=== PATIENT | male | born 1945 | race Caucasian/White ===

== ENCOUNTER → 2023-09-22 14:59 | Outpatient (REF) | payer MEDICARE, OTHER, SELFPAY | LOC: PAVMRI 14:59 | PROVIDERS: ATTENDING PHYSICIAN Physician Assistant; FAMILY PHYSICIAN Internal Medicine | DX: M54.12 Radiculopathy, cervical region (principal) | CPT/HCPCS: 72141 ==

== ENCOUNTER → 2023-10-24 06:46 | Outpatient (REF) | payer MEDICARE, OTHER, SELFPAY ==
[2023-10-24 08:36] LABS: % Basophils 0.6 % (0-2); % Eosinophils 3.4 % (0-6); % Immature Granulocytes 0.4 % (0-0.5); % Lymphocytes 28.3 % (20.5-51.1); % Monocytes 8.4 % (1.7-9.3); % Neutrophils 58.9 % (42.2-75.2); Absolute Eosinophils 0.2 10^3/uL (0-0.7); Absolute Lymphocytes 1.4 10^3/uL (1.2-3.4); Absolute Monocytes 0.4 10^3/uL (0.1-0.6); Hematocrit 42.9 % (39.0-52.0); Hemoglobin 14.1 g/dL (13.0-18.0); Mean Corp Hgb Conc. 32.9 g/dL (33.0-37.0); Mean Corpuscular Hgb 29.4 pg (27.0-31.0); Mean Corpuscular Volume 89.4 fL (80.0-94.0); Mean Platelet Volume 10.6 fL (7.4-10.4); Nucleated Red Blood Cells % 0 % (-); Platelet Count 146 10^3/uL (130-400); Red Cell Dist. Width 13.5 % (11.5-14.5)
[2023-10-24 08:43] LABS: ALT (SGPT) 20 U/L (0-50); AST (SGOT) 26 U/L (17-59); Albumin 4.5 g/dl (3.5-5.0); Alkaline Phosphatase 66 U/L (38-126); Blood Urea Nitrogen 28 mg/dl (9-20); Calcium 9.5 mg/dl (8.4-10.2); Carbon Dioxide 29 mmol/L (22-30); Chloride 104 mmol/L (98-107); Glucose 109 mg/dl (70-99); HDL Cholesterol 36 mg/dl; LDL Cholesterol, Calculated 60 mg/dl; Potassium 4.6 mmol/L (3.5-5.1); Sodium 142 mmol/L (135-145); Total Bilirubin 0.7 mg/dl (0.2-1.3); Total Cholesterol 128 mg/dl (50-199); Total Protein 6.5 g/dl (6.3-8.2); Triglyceride 164 mg/dl (10-149); Very Low Density Lipoprotein 32 mg/dl (0-30); eGFR 56.93
[2023-10-24 08:56] LABS: Glycohemoglobin (HgbA1c) 6.1 % (4.0-5.6)
[2023-10-24 09:14] LABS: PSA, Total - Diagnostic 1.75 ng/ml (0.0-4.0); TSH 1.68 uIU/ml (0.47-4.68)
== END ==
LOC: HWLAB 06:46
PROVIDERS: ATTENDING PHYSICIAN Internal Medicine
DX: E78.5 Hyperlipidemia, unspecified (principal); I25.5 Ischemic cardiomyopathy; N40.0 Benign prostatic hyperplasia without lower urinary tract symptoms; R53.83 Other fatigue; R73.03 Prediabetes
CPT/HCPCS: 36415; 80053; 80061; 83036; 84153; 84443; 85025

== ENCOUNTER 2023-10-25 06:29 | Outpatient (RCR) | payer MEDICARE, OTHER, SELFPAY | END 2023-10-25 23:59 | disposition home or self-care (01) | LOC: RPT 06:29 | PROVIDERS: ATTENDING PHYSICIAN Internal Medicine; FAMILY PHYSICIAN Internal Medicine | DX: I89.0 Lymphedema, not elsewhere classified (principal); Z73.6 Limitation of activities due to disability; R26.2 Difficulty in walking, not elsewhere classified; M62.81 Muscle weakness (generalized) | CPT/HCPCS: 97162; 97535; 97760 ==

== ENCOUNTER 2023-12-12 09:04 | Outpatient (RCR) | payer MEDICARE, OTHER, SELFPAY | END 2023-12-12 23:59 | disposition home or self-care (01) | LOC: RPT 09:04 | PROVIDERS: ATTENDING PHYSICIAN Internal Medicine; FAMILY PHYSICIAN Internal Medicine | DX: I89.0 Lymphedema, not elsewhere classified (principal); Z73.6 Limitation of activities due to disability; R26.2 Difficulty in walking, not elsewhere classified; M62.81 Muscle weakness (generalized) | CPT/HCPCS: 97535; 97763 ==

== ENCOUNTER 2024-01-09 11:47 | Outpatient (RCR) | payer MEDICARE, OTHER, SELFPAY | END 2024-01-09 23:59 | disposition home or self-care (01) | LOC: RPT 11:47 | PROVIDERS: ATTENDING PHYSICIAN Internal Medicine; FAMILY PHYSICIAN Internal Medicine | DX: I89.0 Lymphedema, not elsewhere classified (principal); Z73.6 Limitation of activities due to disability; R26.2 Difficulty in walking, not elsewhere classified; M62.81 Muscle weakness (generalized) | CPT/HCPCS: 97535 ==

== ENCOUNTER 2024-02-04 23:13 | Inpatient (IN) | payer MEDICARE, OTHER, SELFPAY ==
[2024-02-04 18:10] VITALS: BP 168/81
[2024-02-04 18:55] VITALS: BMI 31.9
[2024-02-04 19:18] LABS: % Basophils 0.2 % (0-2); % Immature Granulocytes 0.5 % (0-0.5); % Monocytes 6.6 % (1.7-9.3); % Neutrophils 82.7 % (42.2-75.2); Absolute Eosinophils 0.1 10^3/uL (0-0.7); Absolute Immature Granulocytes 0.1 10^3/uL (0-0.05); Absolute Lymphocytes 1.2 10^3/uL (1.2-3.4); Absolute Monocytes 0.9 10^3/uL (0.1-0.6); Absolute Neutrophils 11.1 10^3/uL (1.4-6.5); Hematocrit 45.5 % (39.0-52.0); Hemoglobin 15.9 g/dL (13.0-18.0); Mean Corp Hgb Conc. 34.9 g/dL (33.0-37.0); Mean Corpuscular Hgb 29.7 pg (27.0-31.0); Mean Corpuscular Volume 84.9 fL (80.0-94.0); Nucleated Red Blood Cells % 0 % (-); Platelet Count 196 10^3/uL (130-400); Red Blood Cell Count 5.36 10^6/uL (4.70-6.10); Red Cell Dist. Width 13.5 % (11.5-14.5); White Blood Cell Count 13.4 10^3/uL (4.8-10.8)
[2024-02-04] MEDS: NSS 1000 IV (19:20)
[2024-02-04] MEDS: ATIVAN 1 MG PO (19:20)
[2024-02-04 19:27] VITALS: BP 147/77
[2024-02-04 19:31] LABS: ALT (SGPT) 22 U/L (0-50); AST (SGOT) 34 U/L (17-59); Albumin 5.2 g/dl (3.5-5.0); Alkaline Phosphatase 67 U/L (38-126); Blood Urea Nitrogen 32 mg/dl (9-20); Calcium 10.5 mg/dl (8.4-10.2); Carbon Dioxide 27 mmol/L (22-30); Chloride 103 mmol/L (98-107); Estimated Creatinine Clearance 57 ml/min; Glucose 110 mg/dl (70-99); Lipase 60 U/L (23-300); Potassium 4.6 mmol/L (3.5-5.1); Sodium 144 mmol/L (135-145); Total Protein 7.1 g/dl (6.3-8.2); eGFR 56.58
[2024-02-04 20:00] VITALS: BP 155/65
[2024-02-04 21:14] VITALS: BP 159/78
[2024-02-04 21:19] LABS: Urine Albumin Negative (Neg - Trace); Urine Bilirubin Negative (Negative); Urine Character Clear (Clear); Urine Color Yellow; Urine Glucose Negative (Negative); Urine Ketone Trace (Negative); Urine Leukocyte Negative (Negative); Urine Nitrite Negative (Negative); Urine Occult Blood Negative (Negative); Urine Urobilinogen Negative (Neg - 1+)
[2024-02-04 22:00] VITALS: BP 153/78
--- NOTE | 2024-02-04 22:03 | ED.GENMED ---
History of Present Illness
General
Chief Complaint: Abdominal Pain
Source: patient
Time Seen by Provider: 02/04/24 18:51
History of Present Illness
History of Present Illness:
This is 78-year-old male who presents with worsening abdominal discomfort. States he initially had some looser stools but then since has been constipated. Patient admits that he has had a little bit of nausea. The patient admits that he has had
some bloating which began about a week prior to arrival. Symptoms worsened last few days. No fevers.
Past History
Past History
ED Past Medical History: CAD, GERD, HTN, Hypercholesterolemia, [place] (1998), Psychiatric (Anxiety, panic disorder), Other (Diverticulitis) and Other (Thoracic and lumbar degenerative disc disease)
ED Past Surgical History: Orthopedic (Achilles tendon repair) and Other (Hernia repair)
Social History
Tobacco: Non-smoker
Alcohol: None
Personal:
Living: with family
Employment: Retired
Family History
Family History: Hypertension
Phy Exam
Physical Exam
Physical Exam:
CONSTITUTIONAL Patient alert and oriented to person, place and time. Well-appearing. Vital signs reviewed.
HEAD atraumatic, normocephalic.
EYES eyelids normal to inspection, Extraocular muscles intact, Conjunctiva normal, Sclera normal.
NECK normal range of motion, Trachea midline, no jugular venous distention.
RESPIRATORY CHEST No respiratory distress noted, Chest expansion equal
ABDOMEN moderate distention, hypoactive bowel sounds, moderate mid abdominal tenderness.
BACK normal inspection, no obvious deformities
UPPER EXTREMITY range of motion normal, Motor strength normal, no cyanosis, no edema.
LOWER EXTREMITY range of motion normal, Motor strength normal, no cyanosis
NEURO Speech normal, No focal motor deficits, Oralia coma scale 15, Memory normal, Cranial Nerves intact to screening exam.
SKIN skin warm, dry, and normal in color.
PSYCHIATRIC patient oriented to person place and time, Normal affect.
Course
Orders/Labs/Results
Orders:
Orders
02/04/24 19:12
Complete Blood Count/With Diff Urgent
Comprehensive Metabolic Panel Urgent
Lipase Urgent
02/04/24 19:14
0.9% Sodium Chloride 1000 ml [Nss] 1,000 ml IV BOLUS
Lorazepam [Ativan] 1 mg PO NOW STA
02/04/24 19:15
CT Abd/Pel (IV only)-DH only Urgent
Comment:
Reason For Exam: abd pain, abd distention
02/04/24 19:16
Lactic Acid Urgent
02/04/24 21:14
Urinalysis Reflex To Culture Urgent
Date Specimen was Collected: 02/04/24
Time Specimen was Collected: 19:00
02/04/24 22:08
Morphine Sulfate 4 mg IV NOW STA
Ondansetron Injectable [Zofran] 4 mg IV NOW STA
02/04/24 22:56
Albuterol [ProAIR HFA INHALER] 2 puff INH R Q4HPRN PRN
Lorazepam [Ativan] 1 mg PO BID PRN
02/04/24 23:00
Admit/Transfer Patient As Directed
Co-Sign Provider:
Level of Care: Inpatient admission
Assign to:: Medical/Surgical
Physician / Group: Hospitalist
Diagnosis: Small bowel obstruction
Reason for Hospitalization: small bowel obstruction
Expected length of stay greater than two midnights?: Yes
ELOS- Estimated Length of Stay in days: 2
I certify the patient meets the requirements for IP care: Yes
Flush (0.9% Sodium Chloride) [Flush (Nss)] See Dose Instructions IV PER PROTOCOL
PRN Pain Medication Management As Directed
May give lesser potent ordered pain med per pt: Yes
preference::
Protocol:: Medication orders for pain may be administered in a
manner that supports deferring to patient preference
when the pt is:
- Requesting an ordered lesser potent pain medication.
Least to most potent pain medications are defined
as: acetaminophen < NSAID < tramadol < opioids
(morphine, oxycodone, hydromorphone).
- Requesting a lesser dose of the same medication IF
ORDERED.
- Requesting a less intrusive route of administration
if both routes are prescribed by the provider (PO <
IV).
02/04/24 23:01
Code Status As Directed
Resuscitation Status: Full Code
02/05/24 00:03
Acetaminophen [Tylenol] 650 mg PO Q4HPRN PRN
Bisacodyl [Dulcolax] 10 mg RECTAL [id number] PRN
Dextrose 5%/0.45%Sodchl 1000ML [D5/0.45%NaCl] 1,000 ml IV 40 mls/hr
Docusate W/Senna [Senokot-S] 1 tablet PO BIDPRN PRN
Morphine Sulfate 2 mg IV Q4HPRN PRN
Ondansetron Injectable [Zofran] 4 mg IV Q6HPRN PRN
Polyethylene Glycol Powder [Miralax] 17 grams PO DAILYPRN PRN
02/05/24 00:03
Consult Notification Routine
Specialty to Notify: Surgical
Date consulting provider notified: 02/05/24
Time consulting provider notified: 07:38
Notified:: Provider
Comment: Micheal PADILLA
SURGICAL CONSULT Routine
Consulting Provider: Sujit Paulino
Was physician already notified: No
Reason for consult: small bowel obstruction
Activity As Directed
Activity Level: With Assistance
Vital Signs As Directed
Frequency: Post-operative guidelines
DX Deep Vein Thrombosis Video Routine
02/05/24 06:16
Basic Metabolic Panel IN AM
Complete Blood Count/No Diff IN AM
02/05/24 08:00
Metoprolol Xl [Toprol Xl] 25 mg PO DAILY
Pantoprazole [Protonix IV] 40 mg IV DAILY
02/05/24 Dinner
NPO
Allow oral meds: Yes
Allow clear liquids: Sips of Clears
NPO with Ice Chips: Yes
02/05/24 18:00
Aspirin Low Dose EC [Aspir Low (Enteric Coated)] 81 mg PO QPM
Atorvastatin [Lipitor] 40 mg PO QPM
Enoxaparin Sodium [Lovenox] 40 mg SC QPM
Abnormal Lab Results
02/04/24 02/04/24
19:12 21:14
WBC 13.4 H 10^3/uL
(4.8-10.8)
Abs Immat Gran (auto) 0.1 H 10^3/uL
(0-0.05)
Absolute Neuts (auto) 11.1 H 10^3/uL
(1.4-6.5)
Absolute Monos (auto) 0.9 H 10^3/uL
(0.1-0.6)
Neutrophils % 82.7 H %
(42.2-75.2)
Lymphocytes % 9.0 L %
(20.5-51.1)
BUN 32 H mg/dl
(9-20)
Glucose 110 H mg/dl
(70-99)
Calcium 10.5 H mg/dl
(8.4-10.2)
Albumin 5.2 H g/dl
(3.5-5.0)
Urine Ketones Trace A
(Negative)
02/04/24 19:12
02/04/24 19:12
Vital Signs
Initial and Last Documented VS:
Initial Vital Signs
Temp Pulse Resp BP Pulse Ox
98.2 F 92 18 168/81 96
02/04/24 18:10 02/04/24 18:10 02/04/24 18:10 02/04/24 18:10 02/04/24 18:10
Last Documented Vital Signs
Temp Pulse Resp BP Pulse Ox
97.5 F 63 17 130/71 99
02/09/24 13:21 02/09/24 13:21 02/09/24 13:21 02/09/24 13:21 02/09/24 13:21
MDM/Problems Addressed
MDM/Problems Addressed:
Small bowel obstruction
*Radiology
Radiology exam reviewed: radiology read reviewed
*Pulse Oximetry
Patient hypoxic: no
*Critical Care Note
Total Time (30-74mins, 75-104mins- exclusive of procedures): Not Applicable
Data Reviewed
Source: patient
Further Testing Considered But Not Given:
Considered NG tube but no evy vomiting
Patient Management
Discussion with other providers: Hospitalist
Escalation/DeEscalation of care consider admission/obs:
SBO by CT. Admit. Hold off on NG tube for now
ED Attending Note
-
Portions of this chart may have been created with voice recognition software.� Occasional wrong word or��sound alike� substitutions may have occurred due to the inherent limitations of voice recognition software.
Discharge Plan
Departure
Patient Disposition: Admit
Date of Disposition: 02/04/24
Time of Disposition: 22:03
Admit to: Med/Surg
Presentation/result/management discussed w/ accepting MD/DO: Hospitalist
Discharge Problem:
SBO (small bowel obstruction)
Interventions
Interventions:
*Risk Screen - Suicide Last Done: 02/04/24 18:10
*General Assessment Last Done: 02/04/24 18:55
*Neglect/Abuse Screening Last Done: 02/04/24 18:10
ED- Fall Risk Assessment Last Done: 02/04/24 19:30
*ED COVID-19 Vaccine History Last Done: 02/04/24 18:10
*Nursing Disposition Last Done: 02/04/24 23:56
[facility]-Acrlkxmxb[facility] Assessment Last Done: 02/04/24 19:30
Discharge Date and Time
Discharge Date/Time: 02/04/24 23:57
[2024-02-04] MEDS: MORPHINE SULFATE 4 MG IV (22:28)
[2024-02-04] MEDS: ZOFRAN 4 MG IV (22:28)
--- NOTE | 2024-02-04 22:46 | HPS.HSE ---
Family Physician
-
Family Physician: Evin Hassan
Chief Complaint
-
Abdominal pain
History of Present Illness
This is a 78-year-old was past medical history of COPD CAD with remote stenting 24 years ago, hyperlipidemia, COPD not on home O2, presenting to the emergency department with acute worsening of abdominal pain that started about 1 week ago.
Patient reports that about 1-1/2 weeks of intermittent abdominal pain associated with intermittent constipation without diarrhea. He denies any nausea or vomiting. He is taking antacids and anti-gas medications without any significant improvement.
Patient denies having any fevers or chills. He denies any rash. He has no recent surgical or interventional procedures. Patient reports a remote history of a hernia repair. Denies any history of intra-abdominal surgery but does not recall
denies ever had an appendectomy. He denies any urinary symptoms including dysuria urinary incontinence or frequency. Patient has been able to tolerate p.o. with his last meal earlier today. He denies feeling lightheaded or dizzy. Patient passing
as. Last BM today.
In the ED he was afebrile blood pressure was 168/81 with a pulse rate of 92 and oxygen saturation of 96% on room air. He had a leukocytosis to 13,000 with a hemoglobin of 16 and a normal platelet count. Chemistries within normal limits. Normal
lipase and LFTs. Calcium was slightly elevated at 10.5 but corrects to normal given albumin of 5. UA was unremarkable. CT of the abdomen pelvis without oral contrast shows mid distal dilation of the small bowel. Diverticulosis without
diverticulitis.
Medical History
Past Medical History
Past Medical History: Reports CAD, HTN and Hypercholesterolemia
Additional Past Medical History:
Diverticulitis
Past Surgical History: Reports Other (Hernia repair)
Social History
Tobacco: Smoker
Alcohol: None
Drug: None
Personal:
Living: With Family
Employment: Retired
Family History
Family History: Not pertinent
Allergies / Home Medications
Allergies reflects when Allergies were last updated in [employer].
Home Medications with original date entered in [employer]
Allergy/Medication List:
Allergies
Allergy/AdvReac Type Severity Reaction Status Date / Time
penicillin G Allergy skin red Verified 02/04/24 18:16
and
swelling,
Itching
Penicillins Allergy skin red Verified 02/04/24 18:16
and
swelling,
Itching
Home Medications
nitroglycerin 0.3 mg sublingual tablet (NitroQuick) 0.3 mg sublingual PRN PRN chest pain 06/07/09
Fibercon: 1 cap PO QPM Constipation 12/01/20
aspirin 81 mg tablet,delayed release 81 mg PO QPM Blood Clot Prevention/Tx 12/01/20
atorvastatin 20 mg tablet 40 mg PO QPM High Cholesterol 12/01/20
coenzyme [id number] E 100 mg-100 unit capsule 1 cap PO DAILY Supplement 12/01/20
cyclobenzaprine 10 mg tablet 10 mg PO PRN PRN spasms 12/01/20
famotidine 20 mg tablet (Acid Controller) 20 mg PO PRN PRN Heartburn 12/01/20
fenofibrate nanocrystallized 145 mg tablet 145 mg PO QPM High Cholesterol 12/01/20
fexofenadine 180 mg tablet (Soila) 180 mg PO PRN PRN Allergy Symptoms 12/01/20
ibuprofen 200 mg tablet (Advil) 400 mg PO PRN PRN pain 12/01/20
metoprolol succinate 25 mg tablet,extended release 24 hr (Toprol XL) 25 mg PO DAILY Blood Pressure 12/01/20
vit C 250 mg-vit E 90 mg-zinc 40 mg-copper 1 [id number] capsule (PreserVision AREDS-2) 1 ea PO BID Supplement 12/04/20
lorazepam 1 mg tablet 1 mg PO BID PRN anxiety #8 tabs 01/29/23
albuterol sulfate 2 inh inhalation Q4H PRN sob 05/19/23
Review of Systems
-
History Source: Patient
Constitutional: Reports No Symptoms
EENT: Reports No Symptoms
Respiratory: Reports No Symptoms
Cardiac: Reports No Symptoms
Abdomen/GI: Reports Abdominal Pain and Nausea
: Reports No Symptoms
Musculoskeletal: Reports No Symptoms
Skin: Reports No Symptoms
Neurological: Reports No Symptoms
Endocrine: Reports No Symptoms
Hematologic/Lymphatic: Reports No Symptoms
Psych: Reports No Symptoms
Physical Exam
Vital Signs
Vital Signs
Temp Pulse Resp BP Pulse Ox
98.2 F 79 18 153/78 98
02/04/24 18:10 02/04/24 22:30 02/04/24 22:31 02/04/24 22:00 02/04/24 22:30
Physical Exam
General: Well Developed, Well Nourished, No Apparent Distress and Comfortable
HEENT: NormoCephalic, Anicteric, Moist mucous membranes and Atraumatic
Respiratory: Clear
Cardiac: S1/S2 and Regular Rhythm
Breast: Deferred by me
GI: Non Tender, Distended and Other (Moderately decreased BS)
Rectal: Deferred by Provider
Genito-urinary: Deferred by me
Musculoskeletal: No Clubbing, No Cyanosis, Edema, Left Lower Extremity (trace) and Edema, Right Lower Extremity (trace)
Skin: Warm
Neuro: AO x 3
Hematologic/Lymphatic: No Lymphadenopathy
Psych: Calm
Laboratory Results
-
02/04/24 19:12
02/04/24 19:12
Laboratory Results
Lactic Acid 1.0 mmol/L (0.7-2.0) 02/04/24 19:16
Total Bilirubin 1.0 mg/dl (0.2-1.3) 02/04/24 19:12
AST 34 U/L (17-59) 02/04/24 19:12
ALT 22 U/L (0-50) 02/04/24 19:12
Alkaline Phosphatase 67 U/L (38-126) 02/04/24 19:12
Lipase 60 U/L (23-300) 02/04/24 19:12
Data Reviewed
-
CT Scan: Report Reviewed by me
Lab Data: Labs Reviewed by me
Old Records: Reviewed
Impression/Plan
-
IMPRESSION:
78 y.o coming in with abdominal pain and found to have a small bowel obstruction.
PLAN:
1. SBO - Abdominal pain worsening today. NO vomiting. Passing flatus. SBO on CT a/p w/o oral contrast. Looks non-toxic and belly exam is benign. No obvious reason for the SBO as patient denies prior intraabdominal surgery. No known
inflammatory bowel disorders. No new medications and not on opioids.
- admit to med/surg
- no indication for NG tube yet
- NPO for now except meds/sips and ice chips
- low maintenance fluids as euvolemic with trace edema - d5 1/2 NS at 40 ml/hr
- pain control and antiemetics
- surgery consult.
2. CAD - PCI in 1999. No recent symptoms. Well appearing and stable
- continue aspirin, statin and metoprolol
3. COPD - No acute symptoms
- prn albuterol
DVT PPX - lovenox sq
Code Status - Full Code
[2024-02-04 23:00] VITALS: BP 135/74
[2024-02-05] VITALS (7 sets, daily range): BP systolic 127–169; BP diastolic 65–90; BMI 31.9; BMI 32.1
[2024-02-05] MEDS: D5/0.45%NACL 1000 IV (00:31)
[2024-02-05] MEDS: NICODERM TRANSDERMAL 21 MG TRANSDERM ×2 (00:34→07:53)
[2024-02-05 06:55] LABS: Blood Urea Nitrogen 29 mg/dl (9-20); Carbon Dioxide 24 mmol/L (22-30); Chloride 108 mmol/L (98-107); Estimated Creatinine Clearance 62 ml/min; Glucose 98 mg/dl (70-99); Potassium 4.2 mmol/L (3.5-5.1); Sodium 142 mmol/L (135-145); eGFR > 60.00
[2024-02-05 07:32] LABS: Hematocrit 39.2 % (39.0-52.0); Hemoglobin 13.5 g/dL (13.0-18.0); Mean Corp Hgb Conc. 34.4 g/dL (33.0-37.0); Mean Corpuscular Hgb 29.2 pg (27.0-31.0); Mean Corpuscular Volume 84.8 fL (80.0-94.0); Platelet Count 156 10^3/uL (130-400); Red Blood Cell Count 4.62 10^6/uL (4.70-6.10); Red Cell Dist. Width 13.7 % (11.5-14.5); White Blood Cell Count 7.4 10^3/uL (4.8-10.8)
[2024-02-05] MEDS: TOPROL XL 25 MG PO (07:53)
[2024-02-05] MEDS: NSS (PRESERVATIVE FREE) 10 ML IV (07:54)
[2024-02-05] MEDS: PROTONIX IV 40 MG IV (07:55)
--- NOTE | 2024-02-05 09:31 | CON.GS ---
Consultation
-
Date/Time Consultation Requested: 02/05/24 0003
Requesting Provider: Skip
Reason for Consultation: small bowel obstruction
Medical History
-
Chief Complaint: Abdominal bloating
History of Present Illness:
This is a 78 yo male with a h/o CAD with remote stenting, umbilical hernia repair, right indirect hernia, left inguinal hernia repair and diverticulitis x2 episodes who presented through the ED with increasing abdominal bloating which began about 7
days ago but significantly worsened about 3 days ago. He noted abdominal pain as well yesterday which caused him to present through the ED for evaluation. He notes that he hasn't really been passing flatus but isn't really sure. He notes his bowel
movements this week have been small and he feels like he is not emptying all the way when he goes. On exam, his abdomen is significantly distended with diastasis noted. There is no tenderness on exam and he currently denies pain. He has been
afebrile and continues without nausea.
Past Medical History
Past Medical History: CAD (PCI in 1999), COPD, Diverticulitis (x2 episodes with last colonoscopy in 2016), GERD, HTN, Hypercholesterolemia, NIDDM, Psychiatric (HERLINDA) and Other (ABBY)
Past Surgical History: Cardiac (PTCA with stent 1999), Hernia Repair (umbilical hernia repair, right indirect hernia repair [address] Cook, Left inguinal hernia repair 2006) and Orthopedic (Left shoulder, achilles )
Social History
Tobacco: Smoker
Alcohol: Occasional
Drug: None
Living: With Family
Family History
Family History: Reviewed & Not Pertinent
Allergies / Home Medications
Allergy/AdvReac Type Severity Reaction Status Date / Time
penicillin G Allergy skin red Verified 02/04/24 18:16
and
swelling,
Itching
Penicillins Allergy skin red Verified 02/04/24 18:16
and
swelling,
Itching
�Medication �Instructions �Recorded �Confirmed �Type
nitroglycerin 0.3 mg sublingual 0.3 mg sublingual PRN PRN chest 06/07/09 05/19/23 History
tablet (NitroQuick) pain
Fibercon: 1 cap PO QPM Constipation 12/01/20 05/19/23 History
aspirin 81 mg tablet,delayed 81 mg PO QPM Blood Clot 12/01/20 05/19/23 History
release Prevention/Tx
atorvastatin 20 mg tablet 40 mg PO QPM High Cholesterol 12/01/20 05/19/23 History
coenzyme N99-iovewat E 100 mg-100 1 cap PO DAILY Supplement 12/01/20 05/19/23 History
unit capsule
cyclobenzaprine 10 mg tablet 10 mg PO PRN PRN spasms 12/01/20 05/19/23 History
famotidine 20 mg tablet (Acid 20 mg PO PRN PRN Heartburn 12/01/20 05/19/23 History
Controller)
fenofibrate nanocrystallized 145 145 mg PO QPM High Cholesterol 12/01/20 05/19/23 History
mg tablet
fexofenadine 180 mg tablet 180 mg PO PRN PRN Allergy Symptoms 12/01/20 05/19/23 History
(Soila)
ibuprofen 200 mg tablet (Advil) 400 mg PO PRN PRN pain 12/01/20 05/19/23 History
metoprolol succinate 25 mg 25 mg PO DAILY Blood Pressure 12/01/20 05/19/23 History
tablet,extended release 24 hr
(Toprol XL)
vit C 250 mg-vit E 90 mg-zinc 40 1 ea PO BID Supplement 12/04/20 05/19/23 History
mg-copper 1 [id number]
capsule (PreserVision AREDS-2)
lorazepam 1 mg tablet 1 mg PO BID PRN anxiety #8 tabs 01/29/23 05/19/23 Rx
albuterol sulfate 2 inh inhalation Q4H PRN sob 05/19/23 05/19/23 History
Review of Systems
-
History Source: Patient
All other systems: Negative unless noted
A 10 point review of systems was completed, and was negative except as per HPI.
Physical Exam
Vital Signs
Temp Pulse Resp BP Pulse Ox
98.3 F 78 20 127/67 95
02/05/24 07:47 02/05/24 07:53 02/05/24 07:47 02/05/24 07:53 02/05/24 07:47
02/04/24 02/05/24 02/06/24
06:59 06:59 06:59
Actual Weight 101.469 kg
Body Mass Index (BMI) 32.1
Lab Results
02/05/24 06:16
02/05/24 06:16
WBC 7.4 10^3/uL (4.8-10.8) 02/05/24 06:16
Hgb 13.5 g/dL (13.0-18.0) 02/05/24 06:16
Hct 39.2 % (39.0-52.0) 02/05/24 06:16
Plt Count 156 10^3/uL (130-400) D 02/05/24 06:16
Abs Immat Gran (auto) 0.1 10^3/uL (0-0.05) H 02/04/24 19:12
Neutrophils % 82.7 % (42.2-75.2) H 02/04/24 19:12
Physical Exam
General: Well Developed and Well Nourished
HEENT: Moist Mucous Membranes
Respiratory: Non Labored Respirations
GI: Soft, Non Tender, Distended and Other (Diastasis recti)
Skin: Warm
Neuro: Awake, Alert and AO x 3
Psych: Calm
Data Reviewed
-
CT Scan: Image Personally Visualized and interpreted, Report Reviewed by me, Discussed with Physician and Discussed with Patient
Labs: Labs Reviewed by me, Discussed with Physician and Discussed with Patient
Old Records: Reviewed
Assessment / Plan
-
This is a 78 yo male with a h/o CAD with remote stenting, umbilical hernia repair, right indirect hernia, left inguinal hernia repair and diverticulitis x2 episodes who presented through the ED with increasing abdominal bloating which began about 7
days ago but significantly worsened about 3 days ago. He is currently without pain or nausea but abdomen is quite distended. He is afebrile. Initial leukocytosis noted which resolved. CT imaging without oral contrast with likely SBO with transition
point on the right side. Unclear etiology.
--Continue NPO
--Will plan UGI with SBFT for further evaluation
--Analgesics/antiemetics if needed
--Medical management as per primary team
--- NOTE | 2024-02-05 09:55 | W.PN.HOSP.TC ---
Today's Communication/Plan
-
mgmt asd per genSx
Assessment / Plan
Assessment / Plan
78yo M with PMHX of COPD, CAD, HLD, diverticulitis came with 1 day of worsening abdominal pain and nausea, found distal SBO, had small BM overnight after admission and was passing gas
A/P:
#SBO
zofran
advnace diet as tolerated as per GenSx
GenSx eval
#Mild leukocytosis
no fever
most likely 2/2 acute disease
follow CBC, fever curve off Abx
#CAD, stable
#HLD
#COPD not in exacerbation
cont home meds
DVT ppx lovenox
full code
I have spent at least 37min reviewing chart, test results, communication with consultants and direct patient care
Anticipated Discharge: 24 - 48 hours
Subjective/Interval History
-
Date of Service: February 05, 2024
Objective Data
-
Labs:
Laboratory Results
02/05/24
06:16
WBC 7.4
Hgb 13.5
Hct 39.2
Plt Count 156 D
Sodium 142
Potassium 4.2
Chloride 108 H
Carbon Dioxide 24
BUN 29 H
Creatinine 1.2
Glucose 98
Calcium 9.0 D
Vital Signs:
Vital Signs
Temp Pulse Resp BP Pulse Ox
98.3 F 78 20 127/67 95
02/05/24 07:47 02/05/24 07:53 02/05/24 07:47 02/05/24 07:53 02/05/24 07:47
I&O
02/04/24 02/05/24 02/06/24
06:59 06:59 06:59
Intake Total 0 / 0
Balance 0 / 0
Review of Systems
-
History Source: Patient
All other systems: Reviewed and negative
Physical Exam
-
General: Well Developed, Well Nourished and No Apparent Distress
HEENT: Normocephalic
Respiratory: Clear to Auscultation
Cardiac: Regular Rhythm
GI: Soft and Tender (R side)
Musculoskeletal: No Clubbing, No Cyanosis and No Edema
Neuro: Awake, Alert, Oriented and AO x 3
Psych: Calm
--- NOTE | 2024-02-05 15:41 | CM ---
patient independent prior to admission. HE lives with in ranch home.
HE does not use any assistive devices. NO histtory of VNA or SNF.
admitted from home with SBO.
PCP: Evin Hassan
Pharmacy: [facility]
Plan:home no needs.
[2024-02-05] MEDS: LOVENOX 40 MG SC (17:01)
[2024-02-05] MEDS: ASPIR LOW (ENTERIC COATED) 81 MG PO (17:01)
[2024-02-05] MEDS: LIPITOR 40 MG PO (17:01)
[2024-02-05] MEDS: ADVAIR HFA 115/21 MCG INHALER 2 PUFF INH (20:00)
[2024-02-06] MEDS: D5/0.45%NACL 1000 IV (05:56)
[2024-02-06 06:00] VITALS: BMI 31.3
[2024-02-06 06:50] LABS: ALT (SGPT) 18 U/L (0-50); AST (SGOT) 26 U/L (17-59); Albumin 4.2 g/dl (3.5-5.0); Alkaline Phosphatase 48 U/L (38-126); Blood Urea Nitrogen 22 mg/dl (9-20); Calcium 9.1 mg/dl (8.4-10.2); Carbon Dioxide 26 mmol/L (22-30); Chloride 106 mmol/L (98-107); Estimated Creatinine Clearance 61 ml/min; Glucose 88 mg/dl (70-99); Magnesium 2.1 mg/dl (1.6-2.3); Potassium 3.8 mmol/L (3.5-5.1); Sodium 142 mmol/L (135-145); Total Bilirubin 0.8 mg/dl (0.2-1.3); Total Protein 5.9 g/dl (6.3-8.2); eGFR > 60.00
[2024-02-06 06:55] LABS: % Basophils 0.5 % (0-2); % Eosinophils 2.4 % (0-6); % Immature Granulocytes 0.4 % (0-0.5); % Lymphocytes 27.9 % (20.5-51.1); % Neutrophils 60.8 % (42.2-75.2); Absolute Eosinophils 0.1 10^3/uL (0-0.7); Absolute Lymphocytes 1.5 10^3/uL (1.2-3.4); Absolute Monocytes 0.4 10^3/uL (0.1-0.6); Absolute Neutrophils 3.4 10^3/uL (1.4-6.5); Hematocrit 38.6 % (39.0-52.0); Hemoglobin 13.2 g/dL (13.0-18.0); Mean Corp Hgb Conc. 34.2 g/dL (33.0-37.0); Mean Corpuscular Hgb 30.3 pg (27.0-31.0); Mean Corpuscular Volume 88.5 fL (80.0-94.0); Mean Platelet Volume 10.7 fL (7.4-10.4); Nucleated Red Blood Cells % 0 % (-); Platelet Count 139 10^3/uL (130-400); Red Blood Cell Count 4.36 10^6/uL (4.70-6.10); Red Cell Dist. Width 13.3 % (11.5-14.5); White Blood Cell Count 5.5 10^3/uL (4.8-10.8)
[2024-02-06] MEDS: ADVAIR HFA 115/21 MCG INHALER 2 PUFF INH ×2 (07:23→19:12)
[2024-02-06 07:30] VITALS: BP 149/81
[2024-02-06] MEDS: NSS (PRESERVATIVE FREE) 10 ML IV (08:07)
[2024-02-06] MEDS: PROTONIX IV 40 MG IV (08:07)
[2024-02-06] MEDS: NICODERM TRANSDERMAL 21 MG TRANSDERM (08:07)
[2024-02-06] MEDS: TOPROL XL 25 MG PO (08:16)
[2024-02-06] MEDS: ZOLOFT 200 MG PO (08:16)
--- NOTE | 2024-02-06 10:37 | W.PN.HOSP.TC ---
Today's Communication/Plan
-
pending further genSx eval
Assessment / Plan
Assessment / Plan
78yo M with PMHX of COPD, CAD, HLD, diverticulitis came with 1 day of worsening abdominal pain and nausea, found distal SBO, had small BM overnight after admission and was passing gas, XR showed resolution of obstruction. GenSx evaluated and
upgraded the diet. No clear reason for SBO
A/P:
#SBO
zofran
advnace diet as tolerated as per GenSx
GenSx eval
#Mild leukocytosis - resolved
no fever
most likely 2/2 acute disease
follow CBC, fever curve off Abx
#CAD, stable
#HLD
#COPD not in exacerbation
cont home meds
DVT ppx lovenox
full code
I have spent at least 37min reviewing chart, test results, communication with consultants and direct patient care
Anticipated Discharge: 24 - 48 hours
Subjective/Interval History
-
Date of Service: February 06, 2024
Objective Data
-
Labs:
Laboratory Results
02/06/24
06:02
WBC 5.5
Hgb 13.2
Hct 38.6 L
Plt Count 139
Sodium 142
Potassium 3.8
Chloride 106
Carbon Dioxide 26
BUN 22 H
Creatinine 1.2
Glucose 88
Calcium 9.1
Total Bilirubin 0.8
AST 26
ALT 18
Alkaline Phosphatase 48
Vital Signs:
Vital Signs
Temp Pulse Resp BP Pulse Ox
97.9 F 69 18 149/81 98
02/06/24 07:30 02/06/24 07:30 02/06/24 07:30 02/06/24 07:30 02/06/24 07:30
I&O
02/05/24 02/06/24 02/07/24
06:59 06:59 06:59
Intake Total 0 / 0
Balance 0 / 0
Review of Systems
-
History Source: Patient
All other systems: Reviewed and negative
Physical Exam
-
General: No Apparent Distress
HEENT: Normocephalic
Cardiac: Regular Rhythm
GI: Soft, Nontender and Nondistended
Musculoskeletal: No Clubbing, No Cyanosis and No Edema
Neuro: Awake, Alert, Oriented and AO x 3
Psych: Calm
--- NOTE | 2024-02-06 10:46 | W.PN.GS2 ---
Addendum entered and electronically signed by Sujit Paulino MD 02/06/24 11:07:
Patient seen and examined. Agree with assessment plan as documented below.
Blood some mild fullness and bloating. Denies worsening pain. No nausea or vomiting. Passing flatus and loose, watery, nonbloody stools. Ambulating. Afebrile.
Gen: NAD
Abd: soft, mild tenderness, distended, tympanitic, non-peritoneal
The patient is a 78 yo M p/w partial SBO
Signs of clinical radiographic improvement. Now completely resolved with some mild residual bloating and abdominal distention. Plan for abdominal x-ray today to help gauge dietary advancement. At most would advance to a full liquid diet today.
Encouraged ambulation.
-- Clears
-- X-ray abdomen
-- OOB/ambulate
-- Correct lytes, minimize narcotics
Original Note:
Today's Communication / Plan
-
Patient to get Abdominal X-Ray and stay on clears for now. Will update diet depending on X-ray findings.
Assessment / Plan
-
Asssessment:
Patient is a 78 yo male with a history of umbilical hernia repair, right indirect and left inguinal hernia repair, and two diverticulitis episodes who presented to the ED with abdominal bloating which started around 7 days ago but significantly
worsened about 4 days ago. Patient's small bowel follow through study showed no small bowel obstruction and he has been tolerating a clear liquid diet. His abdomen is currently still distended but he has been passing flatus and stool.
Plan:
AFVSS
--Continuing with Clear Liquid diet for now, will check Abdominal X-Ray today and will upgrade diet as tolerated
--Leukocytosis has resolved- WBC (5.5 today)
--Anti-emetic/pain medicine as needed
--Medical Management as per primary team
--No plans for surgery as of now
DVT Prophylaxis: Lovenox
Subjective Data
-
Date of Service: February 06, 2024
Patient states that he is feeling well and that he has been tolerating clear liquids well. He reports no nausea, vomiting or any abdominal pain. He says he has not had a bowel movement since yesterday but has been passing flatus. He does complain of
feeling a bit bloated.
Objective Data
-
Intake and Output
02/05/24 02/06/24 02/07/24
06:59 06:59 06:59
Intake Total 0 / 0
Balance 0 / 0
Intake:
Oral fluids 0 / 0
Other:
Number of approximated MODERATE 2
amounts of urine
Vital Signs
Temp Pulse Resp BP Pulse Ox
97.9 F 69 18 149/81 98
02/06/24 07:30 02/06/24 07:30 02/06/24 07:30 02/06/24 07:30 02/06/24 07:30
Lab Results
02/06/24 06:02
02/06/24 06:02
Calcium 9.1 mg/dl (8.4-10.2) 02/06/24 06:02
Magnesium 2.1 mg/dl (1.6-2.3) 02/06/24 06:02
Total Bilirubin 0.8 mg/dl (0.2-1.3) 02/06/24 06:02
AST 26 U/L (17-59) 02/06/24 06:02
ALT 18 U/L (0-50) 02/06/24 06:02
Alkaline Phosphatase 48 U/L (38-126) 02/06/24 06:02
Total Protein 5.9 g/dl (6.3-8.2) L 02/06/24 06:02
Albumin 4.2 g/dl (3.5-5.0) 02/06/24 06:02
Physical Exam
-
General: Well Developed and Well Nourished
Abd: Soft, Non Tender, Distended (tympanic upon percussion), Diastasis recti
[2024-02-06 15:30] VITALS: BP 135/76
[2024-02-06] MEDS: ASPIR LOW (ENTERIC COATED) 81 MG PO (17:20)
[2024-02-06] MEDS: LIPITOR 40 MG PO (17:20)
[2024-02-06] MEDS: LOVENOX 40 MG SC (17:20)
[2024-02-06] MEDS: TYLENOL 650 MG PO (19:54)
[2024-02-06 23:07] VITALS: BP 127/76
[2024-02-07 05:02] VITALS: BMI 31.1
--- NOTE | 2024-02-07 05:04 | DOWNTIME ---
There was a [employer] Client Personnel Representative Downtime on 02/07/2024 from 0100 to 02/07/2024 at 0300. Downtime documentation of patient's care, including medication administrations, has been reconciled in the electronic record per guidelines. Refer to the
patient's paper chart under the miscellaneous tab to see printed paper medication records and downtime forms.
[2024-02-07 07:15] VITALS: BP 162/72
[2024-02-07] MEDS: ADVAIR HFA 115/21 MCG INHALER 2 PUFF INH ×2 (08:00→19:22)
[2024-02-07] MEDS: NSS (PRESERVATIVE FREE) 10 ML IV (09:05)
[2024-02-07] MEDS: TOPROL XL 25 MG PO (09:05)
[2024-02-07] MEDS: PROTONIX IV 40 MG IV (09:05)
[2024-02-07] MEDS: ZOLOFT 200 MG PO (09:05)
[2024-02-07] MEDS: ZOFRAN 4 MG IV (09:06)
[2024-02-07] MEDS: NICODERM TRANSDERMAL 21 MG TRANSDERM (09:06)
--- NOTE | 2024-02-07 09:16 | W.PN.GS2 ---
Today's Communication / Plan
-
Cont CLD
Assessment / Plan
-
Asssessment:
Patient is a 78 yo male with a history of umbilical hernia repair, right indirect and left inguinal hernia repair, and two diverticulitis episodes who presented to the ED with abdominal bloating which started around 7 days ago but significantly
worsened about 4 days ago. Patient's small bowel follow through study showed no small bowel obstruction and he has been tolerating a clear liquid diet. His abdomen is currently still mildly distended but he has been passing flatus and stool.
Plan:
AFVSS
--Continuing with Clear Liquid diet for now, will adv when nausea subsides
--Leukocytosis has resolved
--Anti-emetic/pain medicine as needed, still requiring prn zofran as of this am
--Medical Management as per primary team
--No plans for surgery as of now
DVT Prophylaxis: Lovenox
Subjective Data
-
Date of Service: February 07, 2024
AFVSS, passing flatus and BMs, denies abd pain, remains nauseated with PO intake
Objective Data
-
Intake and Output
02/06/24 02/07/24 02/08/24
06:59 06:59 06:59
Intake Total 0 / 0 920 / 920
Balance 0 / 0 920 / 920
Intake:
Oral fluids 0 / 0 920 / 920
IV fluids (Total) 0 / 0
IV piggybacks 0 / 0
Other:
Number of approximated MODERATE 2 2
amounts of urine
Vital Signs
Temp Pulse Resp BP Pulse Ox
97.7 F 70 16 162/72 99
02/07/24 07:15 02/07/24 07:15 02/07/24 07:15 02/07/24 07:15 02/07/24 07:15
Lab Results
02/06/24 06:02
02/06/24 06:02
Calcium 9.1 mg/dl (8.4-10.2) 02/06/24 06:02
Magnesium 2.1 mg/dl (1.6-2.3) 02/06/24 06:02
Total Bilirubin 0.8 mg/dl (0.2-1.3) 02/06/24 06:02
AST 26 U/L (17-59) 02/06/24 06:02
ALT 18 U/L (0-50) 02/06/24 06:02
Alkaline Phosphatase 48 U/L (38-126) 02/06/24 06:02
Total Protein 5.9 g/dl (6.3-8.2) L 02/06/24 06:02
Albumin 4.2 g/dl (3.5-5.0) 02/06/24 06:02
Physical Exam
-
Gen: NAD
Abd: soft, mild distention, nt
[2024-02-07 10:32] LABS: % Basophils 0.2 % (0-2); % Immature Granulocytes 0.4 % (0-0.5); % Lymphocytes 21.1 % (20.5-51.1); % Monocytes 6.4 % (1.7-9.3); % Neutrophils 69.9 % (42.2-75.2); Absolute Eosinophils 0.1 10^3/uL (0-0.7); Absolute Lymphocytes 1.1 10^3/uL (1.2-3.4); Absolute Monocytes 0.3 10^3/uL (0.1-0.6); Absolute Neutrophils 3.5 10^3/uL (1.4-6.5); Hematocrit 38.8 % (39.0-52.0); Hemoglobin 13.4 g/dL (13.0-18.0); Mean Corp Hgb Conc. 34.5 g/dL (33.0-37.0); Mean Corpuscular Hgb 29.3 pg (27.0-31.0); Mean Corpuscular Volume 84.7 fL (80.0-94.0); Mean Platelet Volume 9.9 fL (7.4-10.4); Nucleated Red Blood Cells % 0 % (-); Platelet Count 141 10^3/uL (130-400); Red Blood Cell Count 4.58 10^6/uL (4.70-6.10); Red Cell Dist. Width 13.2 % (11.5-14.5)
[2024-02-07 10:40] LABS: Lactic Acid 2.5 mmol/L (0.7-2.0)
[2024-02-07 10:44] LABS: ALT (SGPT) 22 U/L (0-50); AST (SGOT) 32 U/L (17-59); Albumin 4.8 g/dl (3.5-5.0); Alkaline Phosphatase 54 U/L (38-126); Blood Urea Nitrogen 17 mg/dl (9-20); Carbon Dioxide 25 mmol/L (22-30); Chloride 106 mmol/L (98-107); Estimated Creatinine Clearance 56 ml/min; Glucose 140 mg/dl (70-99); Magnesium 2.1 mg/dl (1.6-2.3); Phosphorus 3.2 mg/dl (2.5-4.5); Potassium 5.4 mmol/L (3.5-5.1); Sodium 143 mmol/L (135-145); Total Bilirubin 1.1 mg/dl (0.2-1.3); Total Protein 6.4 g/dl (6.3-8.2); eGFR 56.58
[2024-02-07 10:53] LABS: Calcium 9.9 mg/dl (8.4-10.2)
[2024-02-07] MEDS: NSS 250 IV (12:09)
--- NOTE | 2024-02-07 14:23 | W.PN.HOSP.TC ---
Today's Communication/Plan
-
still on CLD
Zofran
Assessment / Plan
Assessment / Plan
78yo M with PMHX of COPD, CAD, HLD, diverticulitis came with 1 day of worsening abdominal pain and nausea, found distal SBO, had small BM overnight after admission and was passing gas, XR showed resolution of obstruction. GenSx evaluated and
upgraded the diet. No clear reason for SBO
A/P:
#SBO
zofran
advnace diet as tolerated as per GenSx
GenSx eval
CTA ruled out mesenteric artery occlusion
#Mild leukocytosis - resolved
no fever
most likely 2/2 acute disease
follow CBC, fever curve off Abx
#Lactic acidodi
2/2 vomiting
#CAD, stable
#HLD
#COPD not in exacerbation
cont home meds
#Diverticulosis without diverticulitis
#BPH
Outpatient follow up with PCP
High fiber diet
DVT ppx lovenox
full code
I have spent at least 37min reviewing chart, test results, communication with consultants and direct patient care
Anticipated Discharge: 24 - 48 hours
Subjective/Interval History
-
Date of Service: February 07, 2024
Objective Data
-
Labs:
Laboratory Results
24 02/07/24
10:24 14:16
WBC 5.0
Hgb 13.4
Hct 38.8 L
Plt Count 141
Sodium 143
Potassium 5.4 H D Pending
Chloride 106
Carbon Dioxide 25
BUN 17
Creatinine 1.3
Glucose 140 H
Calcium 9.9
Total Bilirubin 1.1
AST 32
ALT 22
Alkaline Phosphatase 54
Vital Signs:
Vital Signs
Temp Pulse Resp BP Pulse Ox
97.7 F 70 16 162/72 99
02/07/24 07:15 02/07/24 07:15 02/07/24 07:15 02/07/24 07:15 02/07/24 07:15
I&O
02/06/24 02/07/24 02/08/24
06:59 06:59 06:59
Intake Total 0 / 0 920 / 920
Balance 0 / 0 920 / 920
Review of Systems
-
History Source: Patient
All other systems: Reviewed and negative
Abdomen/GI: Reports Nausea
Physical Exam
-
General: No Apparent Distress
HEENT: Normocephalic
Respiratory: Clear to Auscultation
Cardiac: Regular Rhythm
GI: Distended
Musculoskeletal: No Clubbing, No Cyanosis and No Edema
Neuro: Awake, Alert, Oriented and AO x 3
Psych: Calm
[2024-02-07 14:44] LABS: Lactic Acid 1.4 mmol/L (0.7-2.0)
[2024-02-07] MEDS: TYLENOL 650 MG PO ×2 (15:08→21:29)
[2024-02-07 15:30] VITALS: BP 154/72
[2024-02-07] MEDS: LIPITOR 40 MG PO (17:43)
[2024-02-07] MEDS: LOVENOX 40 MG SC (17:43)
[2024-02-07] MEDS: ASPIR LOW (ENTERIC COATED) 81 MG PO (17:43)
[2024-02-07] MEDS: ATIVAN 1 MG PO (21:34)
[2024-02-07 23:19] VITALS: BP 123/53
[2024-02-08 06:00] VITALS: BMI 30.6
--- NOTE | 2024-02-08 06:38 | W.PN.GS2 ---
Addendum entered and electronically signed by Sujit Paulino MD 02/08/24 12:58:
Patient seen and examined.
No major complaints. Reports improvement with abdominal distention. No nausea or vomiting. Passing flatus and loose, liquid, nonbloody stools. Ambulating. Voiding. Afebrile.
Gen: NAD
Abd: soft, NT, mild distension (improved), non-peritoneal
CT scan from yesterday reviewed.
Patient is a 78 yo M p/w partial SBO.
Patient's SBFT study showed no small bowel obstruction and he has been tolerating a clear liquid diet. His abdomen is currently still mildly distended but he has been passing flatus and stool.
CTA 02/07- Resolving SBO in comparison to previous study. Colonic diverticulosis seen. No intestinal free air, and no occlusion of mesenteric arteries.
Plan for dietary advancement to LRD.
Plan:
--Advance to low residue diet today, monitor for any nausea or vomiting
--Anti-emetic/pain medicine as needed
--Miralax given to help with bowel function
--Medical Management as per primary team
--No plans for surgery as of now
--DVT Prophylaxis: Lovenox
Original Note:
Today's Communication / Plan
-
Patient to advance to low residue diet, see if he can tolerate. Give one dose of miralax today to help with bowel function.
Assessment / Plan
-
Asssessment:
Patient is a 78 yo male with a history of umbilical hernia repair, right indirect and left inguinal hernia repair, and two diverticulitis episodes who presented to the ED with abdominal bloating which started around 9 days ago but significantly
worsened about 6 days ago. Patient's small bowel follow through study showed no small bowel obstruction and he has been tolerating a clear liquid diet. His abdomen is currently still mildly distended but he has been passing flatus and stool.
CTA 02/07- Resolving SBO in comparison to previous study. Colonic diverticulosis seen. No intestinal free air, and no occlusion of mesenteric arteries.
Plan:
AFVSS
--Advance to low residue diet today, monitor for any nausea or vomiting
--CTA yesterday showed no occlusion of mesenteric arteries and showed SBO was resolving
--Leukocytosis has resolved
--Anti-emetic/pain medicine as needed
--Miralax given to help with bowel function
--Medical Management as per primary team
--No plans for surgery as of now
DVT Prophylaxis: Lovenox
Subjective Data
-
Date of Service: February 08, 2024
Patient has been feeling well. Says he has been feeling hungry and his nausea has stabilized. He says he still feels a bit distended but has less pain. He has been having loose bowel movements and been passing gas regularly.
Objective Data
-
Intake and Output
02/06/24 02/07/24 02/08/24
06:59 06:59 06:59
Intake Total 0 / 0 920 / 920 1040 / 1040
Balance 0 / 0 920 / 920 1040 / 1040
Intake:
Oral fluids 0 / 0 920 / 920 1040 / 1040
IV fluids (Total) 0 / 0
IV piggybacks 0 / 0
Other:
Number of approximated MODERATE 2 2
amounts of urine
Number of approximated LARGE 4
amounts of urine
Vital Signs
Temp Pulse Resp BP Pulse Ox
97.9 F 71 18 123/53 94
02/07/24 23:19 02/07/24 23:19 02/07/24 23:19 02/07/24 23:19 02/07/24 23:19
Calcium 9.9 mg/dl (8.4-10.2) 02/07/24 10:24
Phosphorus 3.2 mg/dl (2.5-4.5) 02/07/24 10:24
Magnesium 2.1 mg/dl (1.6-2.3) 02/07/24 10:24
Total Bilirubin 1.1 mg/dl (0.2-1.3) 02/07/24 10:24
AST 32 U/L (17-59) 02/07/24 10:24
ALT 22 U/L (0-50) 02/07/24 10:24
Alkaline Phosphatase 54 U/L (38-126) 02/07/24 10:24
Total Protein 6.4 g/dl (6.3-8.2) 02/07/24 10:24
Albumin 4.8 g/dl (3.5-5.0) 02/07/24 10:24
Physical Exam
-
Gen: NAD
Abd: soft, mild tenderness, distended abdomen but less than before
[2024-02-08 07:00] VITALS: BP 156/81
[2024-02-08 07:32] LABS: % Basophils 0.4 % (0-2); % Eosinophils 3.1 % (0-6); % Immature Granulocytes 0.4 % (0-0.5); % Lymphocytes 22.2 % (20.5-51.1); % Monocytes 8.1 % (1.7-9.3); % Neutrophils 65.8 % (42.2-75.2); Absolute Eosinophils 0.1 10^3/uL (0-0.7); Absolute Monocytes 0.4 10^3/uL (0.1-0.6); Absolute Neutrophils 2.9 10^3/uL (1.4-6.5); Hematocrit 37.9 % (39.0-52.0); Hemoglobin 13.2 g/dL (13.0-18.0); Mean Corp Hgb Conc. 34.8 g/dL (33.0-37.0); Mean Corpuscular Hgb 29.4 pg (27.0-31.0); Mean Corpuscular Volume 84.4 fL (80.0-94.0); Mean Platelet Volume 9.9 fL (7.4-10.4); Nucleated Red Blood Cells % 0 % (-); Platelet Count 150 10^3/uL (130-400); Red Blood Cell Count 4.49 10^6/uL (4.70-6.10); Red Cell Dist. Width 13.2 % (11.5-14.5); White Blood Cell Count 4.5 10^3/uL (4.8-10.8)
[2024-02-08] MEDS: ADVAIR HFA 115/21 MCG INHALER 2 PUFF INH ×2 (07:34→20:18)
[2024-02-08] MEDS: TOPROL XL 25 MG PO (07:39)
[2024-02-08] MEDS: PROTONIX IV 40 MG IV (07:42)
[2024-02-08] MEDS: NSS (PRESERVATIVE FREE) 10 ML IV (07:42)
[2024-02-08] MEDS: NICODERM TRANSDERMAL 21 MG TRANSDERM (07:43)
[2024-02-08 07:58] LABS: Blood Urea Nitrogen 13 mg/dl (9-20); Calcium 9.3 mg/dl (8.4-10.2); Carbon Dioxide 23 mmol/L (22-30); Chloride 105 mmol/L (98-107); Estimated Creatinine Clearance 60 ml/min; Glucose 94 mg/dl (70-99); Sodium 144 mmol/L (135-145); eGFR > 60.00
[2024-02-08] MEDS: ZOLOFT 200 MG PO (08:13)
--- NOTE | 2024-02-08 10:07 | W.PN.HOSP.TC ---
Today's Communication/Plan
-
pending further management by surgery
Assessment / Plan
Assessment / Plan
78yo M with PMHX of COPD, CAD, HLD, diverticulitis came with 1 day of worsening abdominal pain and nausea, found distal SBO, had small BM overnight after admission and was passing gas, XR showed resolution of obstruction. GenSx evaluated and
upgraded the diet. No clear reason for SBO
A/P:
#partial SBO
zofran
advance diet as tolerated as per GenSx
GenSx eval
CTA ruled out mesenteric artery occlusio, showed partial resolution of SBO, concern for ileusn
#Mild leukocytosis - resolved
no fever
most likely 2/2 acute disease
follow CBC, fever curve off Abx
#Lactic acidodi
2/2 vomiting
#CAD, stable
#HLD
#COPD not in exacerbation
#ABBY not on CPAP
cont home meds
Follow with pulm for ABBY treatment
#Diverticulosis without diverticulitis
#BPH
Outpatient follow up with PCP
High fiber diet
DVT ppx lovenox
full code
I have spent at least 37min reviewing chart, test results, communication with consultants and direct patient care
Anticipated Discharge: 24 - 48 hours
Subjective/Interval History
-
Date of Service: February 08, 2024
Objective Data
-
Labs:
Laboratory Results
02/08/24
06:58
WBC 4.5 L
Hgb 13.2
Hct 37.9 L
Plt Count 150
Sodium 144
Potassium 4.0
Chloride 105
Carbon Dioxide 23
BUN 13
Creatinine 1.2
Glucose 94
Calcium 9.3
Vital Signs:
Vital Signs
Temp Pulse Resp BP Pulse Ox
98.0 F 71 14 123/53 99
02/08/24 07:00 02/08/24 07:39 02/08/24 07:39 02/08/24 07:39 02/08/24 07:39
I&O
02/07/24 02/08/24 02/09/24
06:59 06:59 06:59
Intake Total 920 / 920 1040 / 1040
Balance 920 / 920 1040 / 1040
Review of Systems
-
History Source: Patient
All other systems: Reviewed and negative
Physical Exam
-
General: No Apparent Distress
HEENT: Normocephalic
Respiratory: Clear to Auscultation
GI: Soft, Nontender and Distended; Negative Normal Bowel Sounds
Musculoskeletal: No Clubbing, No Cyanosis and No Edema
Skin: Warm
Neuro: Awake, Alert, Oriented and AO x 3
Psych: Calm
[2024-02-08] MEDS: MIRALAX 17 GRAMS PO (12:05)
--- NOTE | 2024-02-08 13:27 | CM ---
Patient reported to be independent by nursing staff, ambulating around the room without device and able to independently handle his ADLs.
Plan: Case management will continue to follow and assist with discharge planning. Home when stable.
[2024-02-08 15:00] VITALS: BP 125/77
[2024-02-08 16:40] VITALS: BP 155/68
[2024-02-08] MEDS: ASPIR LOW (ENTERIC COATED) 81 MG PO (17:31)
[2024-02-08] MEDS: LOVENOX 40 MG SC (17:31)
[2024-02-08] MEDS: LIPITOR 40 MG PO (17:31)
[2024-02-08] MEDS: ZOFRAN 4 MG IV (17:34)
[2024-02-08 23:19] VITALS: BP 134/68
[2024-02-09] MEDS: ATIVAN 1 MG PO (00:43)
[2024-02-09] MEDS: TYLENOL 650 MG PO (00:43)
[2024-02-09] MEDS: MUCINEX 600 MG PO (01:12)
[2024-02-09 07:00] VITALS: BP 150/72
[2024-02-09] MEDS: ADVAIR HFA 115/21 MCG INHALER 2 PUFF INH (08:18)
[2024-02-09] MEDS: NICODERM TRANSDERMAL 21 MG TRANSDERM (08:42)
[2024-02-09] MEDS: TOPROL XL 25 MG PO (08:47)
[2024-02-09] MEDS: ZOLOFT 200 MG PO (08:47)
[2024-02-09] MEDS: PROTONIX 40 MG PO (08:47)
--- NOTE | 2024-02-09 09:14 | W.PN.GS2 ---
Addendum entered and electronically signed by Sal Hernández MD 02/09/24 09:53:
I saw and examined the patient independently.
The [employer] Custodian's note was reviewed and I agree with the note, assessment and plan except where noted below.
Comment: This is a 78-year-old male with a history of an open umbilical hernia as well as bilateral inguinal hernia repairs presented to the ED with a several days of abdominal pain, bloating found to have small bowel obstruction that appears to be
resolving with nonoperative management. He now has good return of bowel function and eager to go home.
Okay to DC home today, per primary.
Patient can follow-up with me as needed as an outpatient.
Original Note:
Today's Communication / Plan
-
Patient tolerating low residue diet well, okay to be discharged as per surgery team
Assessment / Plan
-
Asssessment:
Patient is a 78 yo male with a history of umbilical hernia repair, right indirect and left inguinal hernia repair, and two diverticulitis episodes who presented to the ED with abdominal bloating which started around 9 days ago but significantly
worsened about 6 days ago. Patient's small bowel follow through study showed no small bowel obstruction and he has been tolerating a clear liquid diet. His abdomen is currently non-distended and he was able to tolerate a low residue diet yesterday.
CTA 02/07- Resolving SBO in comparison to previous study. Colonic diverticulosis seen. No intestinal free air, and no occlusion of mesenteric arteries.
Plan:
AFVSS
--Advanced to low residue diet yesterday with no reported nausea or vomiting
--CTA showed no occlusion of mesenteric arteries and showed SBO was resolving
--Leukocytosis has resolved
--Anti-emetic/pain medicine as needed
--Miralax given to help with bowel function, patient reports he had a loose bowel movement but that it was more solid than before
--Medical Management as per primary team
--No plans for surgery as of now
--Patient okay to be discharged today as per surgery team
DVT Prophylaxis: Lovenox
Subjective Data
-
Date of Service: February 09, 2024
Patient has been feeling well and reports no nausea or vomiting. He has been passing flatus and had a bowel movement with loose stool which he says has been becoming more solid looking. He reports his abdomen feels less distended and that he has
been feel less pain in general. He was able to tolerate the low residue diet yesterday but didn't end up ordering too many solid food options out of caution.
Objective Data
-
Intake and Output
02/08/24 02/09/24 02/10/24
06:59 06:59 06:59
Intake Total 1040 / 1040 1350 / 1350
Balance 1040 / 1040 1350 / 1350
Intake:
Oral fluids 1040 / 1040 1350 / 1350
Other:
Number of approximated MODERATE 2
amounts of urine
Number of approximated LARGE 4
amounts of urine
Vital Signs
Temp Pulse Resp BP Pulse Ox
97.8 F 60 16 150/72 96
02/09/24 07:00 02/09/24 08:47 02/09/24 07:00 02/09/24 08:47 02/09/24 07:00
Lab Results
02/08/24 06:58
02/08/24 06:58
Calcium 9.3 mg/dl (8.4-10.2) 02/08/24 06:58
Phosphorus 3.2 mg/dl (2.5-4.5) 02/07/24 10:24
Magnesium 2.1 mg/dl (1.6-2.3) 02/07/24 10:24
Total Bilirubin 1.1 mg/dl (0.2-1.3) 02/07/24 10:24
AST 32 U/L (17-59) 02/07/24 10:24
ALT 22 U/L (0-50) 02/07/24 10:24
Alkaline Phosphatase 54 U/L (38-126) 02/07/24 10:24
Total Protein 6.4 g/dl (6.3-8.2) 02/07/24 10:24
Albumin 4.8 g/dl (3.5-5.0) 02/07/24 10:24
Physical Exam
-
Gen: NAD
Abd: soft, non-distended, non-tender
--- NOTE | 2024-02-09 10:36 | W.PN.HOSP.TC ---
Today's Communication/Plan
-
dc
Assessment / Plan
Assessment / Plan
78yo M with PMHX of COPD, CAD, HLD, diverticulitis came with 1 day of worsening abdominal pain and nausea, found distal partial SBO, had small BM overnight after admission and was passing gas, XR showed resolution of obstruction. GenSx evaluated and
upgraded the diet, patient was able to tolerate it, had BM. Was started on Laxatives. CTA abd/pelvis showed resolving SBO, no mesenteric stenosis. Medically stable for d/c as per agreement with GenSx
A/P:
#partial SBO
zofran
advance diet as tolerated as per GenSx
GenSx eval
CTA on 02/07/24 ruled out mesenteric artery occlusion, showed partial resolution of SBO, concern for ileus
#Mild leukocytosis - resolved
no fever
most likely 2/2 acute disease
follow CBC, fever curve off Abx
#Lactic acidosis
2/2 vomiting
#CAD, stable
#HLD
#COPD not in exacerbation
#ABBY not on CPAP
cont home meds
Follow with pulm for ABBY treatment
#Diverticulosis without diverticulitis
#BPH
Outpatient follow up with PCP
High fiber diet
DVT ppx lovenox
full code
I have spent at least 37min reviewing chart, test results, communication with consultants and direct patient care
Anticipated Discharge: Today
Subjective/Interval History
-
Date of Service: February 09, 2024
Objective Data
-
Vital Signs:
Vital Signs
Temp Pulse Resp BP Pulse Ox
97.8 F 60 16 150/72 95
02/09/24 07:00 02/09/24 08:47 02/09/24 07:00 02/09/24 08:47 02/09/24 09:32
I&O
02/08/24 02/09/24 02/10/24
06:59 06:59 06:59
Intake Total 1040 / 1040 1350 / 1350
Balance 1040 / 1040 1350 / 1350
Review of Systems
-
History Source: Patient
All other systems: Reviewed and negative
Physical Exam
-
General: No Apparent Distress
Respiratory: Clear to Auscultation
Cardiac: Regular Rhythm
GI: Soft, Nontender, Nondistended and Normal Bowel Sounds
Skin: Warm
Neuro: Awake, Alert, Oriented and AO x 3
--- NOTE | 2024-02-09 10:39 | W.DCSUMMARY ---
Discharge Summary
Discharge Data
Date of Admission: 02/04/24
Date of Discharge: 02/09/24
-
Pending Results: No
Hospital Course
78yo M with PMHX of COPD, CAD, HLD, diverticulitis came with 1 day of worsening abdominal pain and nausea, found distal partial SBO, had small BM overnight after admission and was passing gas, XR showed resolution of obstruction. GenSx evaluated and
upgraded the diet, patient was able to tolerate it, had BM. Was started on Laxatives. CTA abd/pelvis showed resolving SBO, no mesenteric stenosis. Medically stable for d/c as per agreement with [facility]
I have spent at least 37min preparing d/c
A/P:
#partial SBO
#Mild leukocytosis - resolved
#Lactic acidosis
#CAD, stable
#HLD
#COPD not in exacerbation
#ABBY not on CPAP
#Diverticulosis without diverticulitis
#BPH
Discharge Plan
-
Patient Disposition: Home (Routine Discharge)
Discharge Diagnosis/Procedures: partial SBO
Diet: Low Fiber
Activity: As tolerated
Driving Restrictions: As prior to admission
Instructions: Low Fiber Diet
Referrals:
Evin Hassan MD [Family Provider] -
Prescriptions:
New
polyethylene glycol 3350 [HealthyLax] 17 gram Powder In Packet
17 g PO DAILYPRN PRN (Reason: constipation) Qty: 30 0RF
sennosides-docusate sodium 8.6-50 mg Tablet
1 tab PO BID Qty: 60 0RF
metoprolol succinate 25 mg Tablet Extended Release 24 Hr
25 mg PO DAILY Qty: 0 0RF
Continued
nitroglycerin [NitroQuick] 0.3 MG tablet, sublingual
0.3 mg sublingual PRN PRN (Reason: chest pain)
cyclobenzaprine 10 MG tablet
10 mg PO PRN PRN (Reason: spasms)
atorvastatin 20 MG tablet
40 mg PO QPM
fexofenadine [Soila] 180 MG tablet
180 mg PO PRN PRN (Reason: Allergy Symptoms)
aspirin 81 MG tablet,delayed release (DR/EC)
81 mg PO QPM
famotidine [Acid Controller] 20 MG tablet
20 mg PO PRN PRN (Reason: Heartburn)
coenzyme K64-zxzzrbo E 1 CAP capsule
1 cap PO DAILY
fenofibrate nanocrystallized 145 MG tablet
145 mg PO QPM
PreserVision AREDS-2 1 EACH capsule
1 ea PO BID
lorazepam 1 mg tablet
1 mg PO BID PRN (Reason: anxiety) Qty: 8 0RF
multivitamin Tablet
1 tab PO DAILY
sertraline 100 mg tablet
200 mg PO DAILY
ibuprofen 600 mg tablet
600 mg PO DAILY
albuterol sulfate 90 mcg/actuation HFA aerosol inhaler
2 puff INHALATION PRN PRN (Reason: SOB)
fluticasone propion-salmeterol 250-50 mcg/dose blister with device
1 inh INHALATION BID
metoprolol succinate 25 mg tablet extended release 24 hr
25 mg PO DAILY
Discharge Orders:
Discharge Patient (As Directed); Ordered 02/09/24
Ordered By: Martell Beth
Discharge Date and Time
Print Language: SETSWA[place]
--- NOTE | 2024-02-09 11:58 | CM ---
Reviewed chart, patient cleared for discharge. Patient signed IMM form and it was reviewed. Now on chart. He stated that his neighbor will drive him home.
Plan: Case management will continue to follow and assist with discharge planning. Home.
[2024-02-09 13:21] VITALS: BP 130/71
== END 2024-02-09 13:55 | disposition home or self-care (01) | DRG 389 ==
LOC: 3 WEST ACU 23:13
PROVIDERS: ADMITTING PHYSICIAN Internal Medicine; ATTENDING PHYSICIAN Internal Medicine; EMERGENCY PHYSICIAN Emergency Medicine; FAMILY PHYSICIAN Internal Medicine; OTHER PHYSICIAN Surgery
DX: K56.600 Partial intestinal obstruction, unspecified as to cause (principal); E87.20 Acidosis, unspecified; E78.00 Pure hypercholesterolemia, unspecified; F41.0 Panic disorder [episodic paroxysmal anxiety]; I10 Essential (primary) hypertension; I25.10 Atherosclerotic heart disease of native coronary artery without angina pectoris; K21.9 Gastro-esophageal reflux disease without esophagitis; M51.36 Other intervertebral disc degeneration, lumbar region; K56.7 Ileus, unspecified; M51.34 Other intervertebral disc degeneration, thoracic region; K57.30 Diverticulosis of large intestine without perforation or abscess without bleeding; N40.0 Benign prostatic hyperplasia without lower urinary tract symptoms; J44.9 Chronic obstructive pulmonary disease, unspecified; D72.829 Elevated white blood cell count, unspecified; F17.200 Nicotine dependence, unspecified, uncomplicated; E11.9 Type 2 diabetes mellitus without complications; G47.33 Obstructive sleep apnea (adult) (pediatric); I25.2 Old myocardial infarction; Z95.5 Presence of coronary angioplasty implant and graft; Z88.0 Allergy status to penicillin; Z79.82 Long term (current) use of aspirin
CPT/HCPCS: 71046; 74019; 74174; 74177; 74250; 80048; 80053; 81003; 83605; 83690; 83735; 84100; 84132; 85025; 85027; 94640; 96361; 96374; 96375; 99285; 99406; Q9967

== ENCOUNTER → 2024-03-25 13:52 | Outpatient (REF) | payer MEDICARE, OTHER, SELFPAY | LOC: HWRAD 13:52 | PROVIDERS: ATTENDING PHYSICIAN Internal Medicine Critical Care Medicine; FAMILY PHYSICIAN Internal Medicine | DX: Z87.891 Personal history of nicotine dependence (principal); R91.1 Solitary pulmonary nodule | CPT/HCPCS: 71271 ==

== ENCOUNTER → 2024-04-03 08:24 | Outpatient (REF) | payer MEDICARE, OTHER, SELFPAY | LOC: PAVMRI 08:24 | PROVIDERS: ATTENDING PHYSICIAN Internal Medicine Gastroenterology; FAMILY PHYSICIAN Internal Medicine | DX: K56.609 Unspecified intestinal obstruction, unspecified as to partial versus complete obstruction (principal); Z80.0 Family history of malignant neoplasm of digestive organs | CPT/HCPCS: 72197; 74183; A9575 ==

== ENCOUNTER → 2024-09-04 06:05 | Outpatient (REF) | payer MEDICARE, OTHER, SELFPAY ==
[2024-09-04 10:23] LABS: ALT (SGPT) 21 U/L (0-50); AST (SGOT) 27 U/L (17-59); Albumin 4.5 g/dl (3.5-5.0); Alkaline Phosphatase 73 U/L (38-126); Blood Urea Nitrogen 25 mg/dl (9-20); Calcium 9.7 mg/dl (8.4-10.2); Carbon Dioxide 29 mmol/L (22-30); Chloride 107 mmol/L (98-107); Glucose 107 mg/dl (70-99); HDL Cholesterol 39 mg/dl; LDL Cholesterol, Calculated 49 mg/dl; Potassium 4.5 mmol/L (3.5-5.1); Sodium 145 mmol/L (135-145); Total Bilirubin 0.6 mg/dl (0.2-1.3); Total Cholesterol 116 mg/dl (50-199); Total Protein 6.3 g/dl (6.3-8.2); Triglyceride 144 mg/dl (10-149); Very Low Density Lipoprotein 28 mg/dl (0-30); eGFR 56.58
== END ==
LOC: HWLAB 06:05
PROVIDERS: ATTENDING PHYSICIAN Internal Medicine; FAMILY PHYSICIAN Internal Medicine
DX: I25.10 Atherosclerotic heart disease of native coronary artery without angina pectoris (principal)
CPT/HCPCS: 36415; 80053; 80061

== ENCOUNTER → 2024-10-01 08:51 | Outpatient (REF) | payer MEDICARE, OTHER, SELFPAY | LOC: HWRAD 08:51 | PROVIDERS: ATTENDING PHYSICIAN Internal Medicine Critical Care Medicine; FAMILY PHYSICIAN Internal Medicine; REFERRING PHYSICIAN Internal Medicine | DX: R91.8 Other nonspecific abnormal finding of lung field (principal) | CPT/HCPCS: 71250 ==

== ENCOUNTER → 2025-01-15 06:08 | Outpatient (REF) | payer MEDICARE, OTHER, SELFPAY ==
[2025-01-15 09:45] LABS: Hematocrit 43.3 % (39.0-52.0); Hemoglobin 14.3 g/dL (13.0-18.0); Mean Corp Hgb Conc. 33.0 g/dL (33.0-37.0); Mean Corpuscular Volume 86.9 fL (80.0-94.0); Nucleated Red Blood Cells % 0 % (-); Platelet Count 143 10^3/uL (130-400); Red Cell Dist. Width 13.5 % (11.5-14.5)
[2025-01-15 10:36] LABS: ALT (SGPT) 20 U/L (0-50); AST (SGOT) 26 U/L (17-59); Albumin 4.9 g/dl (3.5-5.0); Alkaline Phosphatase 56 U/L (38-126); Blood Urea Nitrogen 26 mg/dl (9-20); Calcium 9.4 mg/dl (8.4-10.2); Carbon Dioxide 28 mmol/L (22-30); Chloride 107 mmol/L (98-107); Glucose 107 mg/dl (70-99); HDL Cholesterol 35 mg/dl; LDL Cholesterol, Calculated 48 mg/dl; Potassium 4.5 mmol/L (3.5-5.1); Sodium 141 mmol/L (135-145); Total Protein 6.5 g/dl (6.3-8.2); Very Low Density Lipoprotein 41 mg/dl (0-30); eGFR 56.23
[2025-01-15 10:48] LABS: PSA, Total - Diagnostic 1.76 ng/ml (0.0-4.0); TSH 2.24 uIU/ml (0.47-4.68)
== END ==
LOC: HWLAB 06:08
PROVIDERS: ATTENDING PHYSICIAN Internal Medicine
DX: I10 Essential (primary) hypertension (principal); I25.10 Atherosclerotic heart disease of native coronary artery without angina pectoris; E78.5 Hyperlipidemia, unspecified; R73.03 Prediabetes; J44.9 Chronic obstructive pulmonary disease, unspecified; F17.200 Nicotine dependence, unspecified, uncomplicated; Z00.00 Encounter for general adult medical examination without abnormal findings; N40.0 Benign prostatic hyperplasia without lower urinary tract symptoms
CPT/HCPCS: 36415; 80053; 80061; 84153; 84443; 85025

== ENCOUNTER → 2025-04-18 07:51 | Outpatient (REF) | payer MEDICARE, OTHER, SELFPAY | LOC: HWRCS 07:51 | PROVIDERS: ATTENDING PHYSICIAN Internal Medicine; FAMILY PHYSICIAN Internal Medicine | DX: I25.10 Atherosclerotic heart disease of native coronary artery without angina pectoris (principal); I25.5 Ischemic cardiomyopathy; I25.2 Old myocardial infarction | CPT/HCPCS: 93306 ==